=== PATIENT | female | born 1970 | race Caucasian/White ===

== ENCOUNTER → 2024-01-14 09:14 | Outpatient (REF) | payer BC, SELFPAY | LOC: HWRCS 09:14 | PROVIDERS: ATTENDING PHYSICIAN Internal Medicine Cardiovascular Disease; FAMILY PHYSICIAN Physician Assistant Medical | DX: R06.02 Shortness of breath (principal); I45.10 Unspecified right bundle-branch block; D86.9 Sarcoidosis, unspecified | CPT/HCPCS: 93306 ==

== ENCOUNTER → 2024-01-21 16:33 | Outpatient (REF) | payer BC, SELFPAY | LOC: RAD 16:33 | PROVIDERS: ATTENDING PHYSICIAN Physician Assistant Medical | DX: R05.3 Chronic cough (principal) | CPT/HCPCS: 71046 ==

== ENCOUNTER 2024-01-27 18:41 | Emergency (ER) | payer BC, SELFPAY ==
[2024-01-27 18:43] VITALS: BP 179/99
--- NOTE | 2024-01-27 20:33 | ED.GENMED ---
History of Present Illness
General
Chief Complaint: Breathing Problem
Source: patient
Exam Limitations: none
Time Seen by Provider: 01/27/24 19:51
History of Present Illness
History of Present Illness:
This is a 54 year old female that comes in with c/o cough and SOB. States that she has been sick for the past 2.5 weeks. States that she has had a cough. Then last Wednesday she went to the PCP. States that they did a chest x-ray and gave her a steroid
inhaler and Tessalon Pearls. States that this did not help. States that they they place her on an antibiotic and they told her this may be Whooping cough and that the antibiotic would help. States that the cough is worse and she feels that she can't
catch her breath. States that she feels SOB, has abd pain and vomited due to the coughing. States that she has a headache with dizziness. Denies any fever, chills, chest pain, diarrhea, urinary burning.
Past History
Past History
ED Past Medical History: HTN and Other (Sarcpodpsos. )
ED Past Surgical History: (X 2) and Other (Breast Augmentation)
Social History
Tobacco: Non-smoker
Alcohol: Occasional
Drug: None
Personal:
Living: with family
Employment: Employed
Family History
Family History: Other (No significant)
Review of Systems
Review of Systems
All Other Systems: ROS reviewed and negative except as documented in HPI and ROS
Constitutional: Reports no symptoms; Denies fever or chills
EENT: Reports no symptoms
Respiratory: Reports cough and trouble breathing
Cardiac: Reports no symptoms; Denies chest pain
ABD/GI: Reports abdominal pain and vomiting (with cough); Denies nausea or diarrhea
: Reports no symptoms; Denies dysuria, frequency or urgency
Musculoskeletal: Reports no symptoms
Skin: Reports no symptoms
Neurological: Reports dizzy and headache
Psychiatric: Reports no symptoms
Phy Exam
General Physical Exam
General Presentation: mild distress
General age: appears stated age
General Skin: warm and dry
General Habitus: normal
General Mental: alert
General Hydration: dry mucous membranes
ENT Exam
ENT Exam: TM's normal, pharynx normal and neck supple
Eye Exam
Eye Exam: EOMI
Cardiovascular Exam
Cardiovascular Exam: no edema, normal peripheral pulses and tachycardia
Pulmonary Exam
Pulmonary Exam: lungs clear, no respiratory distress, no rales, chest non tender, no crackles, no rhonchi, no wheezing and other (Dry cough noted)
Gastrointestinal Exam
Gastrointestinal Exam: normal bowel sounds, non tender, soft, no organomegaly, no pulsatile mass and non distended
Musculoskeletal Exam
Musculoskeletal Exam: full ROM and no edema
Skin Exam
Skin Exam: normal color, warm/dry, no rash and no petechia
Psychiatric Exam
Psychiatric Exam: normal mood/affect
Scores
Heart Failure Risk
Heart Failure Risk Score: Not Applicable
Course
Orders/Labs/Results
Orders:
Orders
01/27/24 20:32
CT Chest Pe Study Urgent
Comment:
Reason For Exam: Cough, SOB 2.5 weeks
0.9% Sodium Chloride 1000 ml [Nss] 1,000 ml IV BOLUS
Ondansetron Injectable [Zofran] 4 mg IV NOW STA
Promethazine/Codeine [Phenergan with Codeine Syrup] 5 ml PO NOW STA
Test Result ONCE
01/27/24 21:16
Complete Blood Count/With Diff Urgent
Comprehensive Metabolic Panel Urgent
HCG, Serum Qualitative Screen Urgent
Abnormal Lab Results
01/27/24
21:16
WBC 11.0 H 10^3/uL
(4.8-10.8)
Absolute Lymphs (auto) 3.6 H 10^3/uL
(1.2-3.4)
Absolute Monos (auto) 0.9 H 10^3/uL
(0.1-0.6)
Calcium 10.3 H mg/dl
(8.4-10.2)
01/27/24 21:16
01/27/24 21:16
Vital Signs
Initial and Last Documented VS:
Initial Vital Signs
Temp Pulse Resp BP Pulse Ox
97.9 F 110 24 179/99 98
01/27/24 18:43 01/27/24 18:43 01/27/24 18:43 01/27/24 18:43 01/27/24 18:43
Last Documented Vital Signs
Temp Pulse Resp BP Pulse Ox
97.9 F 110 24 179/99 98
01/27/24 18:43 01/27/24 18:43 01/27/24 18:43 01/27/24 18:43 01/27/24 18:43
MDM/Problems Addressed
Differential Diagnosis Includes:
PE, Whooping cough, Viral syndrome
MDM/Problems Addressed:
This is a 54 year old female that comes in with c/o cough for the past 2.5 weeks. States that she is not getting any better. Patient has been on steroid inhaler and antibiotics.
Will check labs, Medicate for cough and get CT of the chest.
Back into see patient. Explained that the CT of the chest is normal. Labs show a very slight Elevation of the WBC's. Will have patient increase her water intake to 8-8oz glasses daily. Will have patient take Prednisone 40mg for 5 days. Patient to
continue with the antibiotic that she has started and use Delsym for cough. Return with any concerns.
Chronic conditions affecting care:
NA
Acute Exacerbation and/or Progression of Chronic Illness:
NA
*Radiology
Radiology exam reviewed: radiology read reviewed (CT chest-No acute disease of the chest. No evidence of pulmonary embolus. )
*Pulse Oximetry
Patient hypoxic: no
*EKG
Interpreted by ED Provider?: NA
Rate: EKG- N/A
*Outdoor Studies Professor Interpretation
Rate: Outdoor Studies Professor- N/A
*Critical Care Note
Total Time (30-74mins, 75-104mins- exclusive of procedures): Not Applicable
ED Attending Note
-
Portions of this chart may have been created with voice recognition software.� Occasional wrong word or��sound alike� substitutions may have occurred due to the inherent limitations of voice recognition software.
Discharge Plan
Departure
Patient Disposition: Home (Routine Discharge)
Date of Disposition: 01/27/24
Time of Disposition: 22:57
Patient with high blood pressure during this ER visit?: Yes
Condition: Good
Covid-19: Not Applicable
Discharge Problem:
Cough in adult
Instructions: Cough, Adult ED, BLOOD PRESSURE
Prescriptions:
New
prednisone 20 mg tablet
40 mg PO DAILY Qty: 6 0RF
No Action
escitalopram oxalate 10 MG tablet
10 mg PO DAILY
Plaquenil:
1.5 tab PO DAILY
Meloxicam
1 tab PO DAILY
prednisone 10 MG tablet
10 mg PO DAILY Qty: 30 0RF
Rx Instructions:
40 mg day x 3 days, 30 mg day x 3 days, 20 mg day x 3 days, 10 mg day for 3 days
albuterol sulfate [Proventil HFA] 90 MCG/PUFF HFA aerosol inhaler
1 puff inhalation Q4HPRN PRN (Reason: shortness of breath) Qty: 1 0RF
omeprazole magnesium [Prilosec OTC] 20 MG tablet,delayed release (DR/EC)
20 mg PO DAILY Qty: 20 0RF
Referrals:
Erin Jay MD [Family Provider] - Call in 1-3 days for appt
Activity Restrictions/Additional Instructions:
As discussed, your blood work shows that your White blood cell count is very slightly elevated. Otherwise your labs are normal. Your CT of the chest is negative for any acute process. Please increase your water intake to 8-8oz glasses daily. You
have had a prescription sent to your Pharmacy for Prednisone. Please take 40mg daily for 5 days. You will have some tablets left over. Continue with the Antibiotic that you are taking. You may also use Tea with Honey and Delsym for the cough. IF
YOU HAVE ANY OTHER CONCERNS PLEASE RETURN TO THE EMERGENCY ROOM
Interventions
Interventions:
*Risk Screen - Suicide Last Done: 01/27/24 18:43
*General Assessment Last Done: 01/27/24 18:43
*Neglect/Abuse Screening Last Done: 01/27/24 18:43
Discharge Date and Time
Print Language: [id number]
[2024-01-27] MEDS: PHENERGAN WITH CODEINE SYRUP 5 ML PO (21:08)
[2024-01-27] MEDS: NSS 1000 IV (21:16)
[2024-01-27] MEDS: ZOFRAN 4 MG IV (21:17)
[2024-01-27 21:25] LABS: % Basophils 0.5 % (0-2); % Eosinophils 1.2 % (0-6); % Immature Granulocytes 0.2 % (0-0.5); % Lymphocytes 32.6 % (20.5-51.1); % Monocytes 8.2 % (1.7-9.3); % Neutrophils 57.3 % (42.2-75.2); Absolute Basophils 0.1 10^3/uL (0-0.2); Absolute Eosinophils 0.1 10^3/uL (0-0.7); Absolute Lymphocytes 3.6 10^3/uL (1.2-3.4); Absolute Monocytes 0.9 10^3/uL (0.1-0.6); Absolute Neutrophils 6.3 10^3/uL (1.4-6.5); Hematocrit 40.4 % (37.0-47.0); Hemoglobin 14.6 g/dL (12.0-16.0); Mean Corp Hgb Conc. 36.1 g/dL (33.0-37.0); Mean Corpuscular Hgb 30.2 pg (27.0-31.0); Mean Corpuscular Volume 83.5 fL (81.0-99.0); Mean Platelet Volume 9.6 fL (7.4-10.4); Nucleated Red Blood Cells % 0 %; Platelet Count 248 10^3/uL (130-400); Red Blood Cell Count 4.84 10^6/uL (4.20-5.40); Red Cell Dist. Width 11.9 % (11.5-14.5)
[2024-01-27 21:35] LABS: ALT (SGPT) 19 U/L (0-35); AST (SGOT) 31 U/L (14-36); Albumin 4.8 g/dl (3.5-5.0); Alkaline Phosphatase 49 U/L (38-126); Blood Urea Nitrogen 12 mg/dl (7-17); Calcium 10.3 mg/dl (8.4-10.2); Carbon Dioxide 25 mmol/L (22-30); Chloride 104 mmol/L (98-107); Glucose 97 mg/dl (70-99); Potassium 4.3 mmol/L (3.5-5.1); Sodium 139 mmol/L (135-145); Total Bilirubin 0.8 mg/dl (0.2-1.3); Total Protein 7.3 g/dl (6.3-8.2); eGFR > 60.00
[2024-01-27 21:55] LABS: HCG, Serum Qualitative Screen Negative
[2024-01-27 23:15] VITALS: BP 134/76
== END 2024-01-27 23:15 | disposition home or self-care (01) ==
LOC: EMR 18:41
PROVIDERS: Clinical Nurse Specialist Family Health; EMERGENCY PHYSICIAN Emergency Medicine; FAMILY PHYSICIAN Obstetrics & Gynecology Gynecology
DX: R05.9 Cough, unspecified (principal); R06.02 Shortness of breath; I10 Essential (primary) hypertension
CPT/HCPCS: 99284; 96374; 96361; 71275; 80053; 84703; 85025; Q9967

== ENCOUNTER → 2025-02-14 08:21 | Outpatient (REF) | payer BC, SELFPAY | LOC: RCS 08:21 | PROVIDERS: ATTENDING PHYSICIAN Internal Medicine Cardiovascular Disease; FAMILY PHYSICIAN Physician Assistant Medical | DX: R00.0 Tachycardia, unspecified (principal); I45.10 Unspecified right bundle-branch block; D86.9 Sarcoidosis, unspecified | CPT/HCPCS: 93225; 93226 ==